=== PATIENT | female | born 1965 | race Two or more races ===

== ENCOUNTER 2020-01-09 09:09 | Emergency (ER) | payer MEDICAID ==
[~2020-01-09] VITALS: Ht 177.8 cm; Wt 58.5 kg
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
--- NOTE | 2020-01-09 09:15 | NUR ---
dr yoo at bedside for eval.
[2020-01-09] MEDS ORDERED: oxyCODONE/APAP (5/325 MG) 1 UDTAB TABLET ONE (09:24)
[2020-01-09] MEDS ORDERED: IBUPROFEN 600 MG TABLET PO ONE ×2 (09:24→09:30)
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
[2020-01-09] MEDS ORDERED: oxyCODONE/APAP (5/325 MG) 1 UDTAB TABLET PO ONE (09:30)
--- NOTE | 2020-01-09 10:12 | NUR ---
PD at bedside talking to patient.
--- NOTE | 2020-01-09 10:49 | NUR ---
patient provided crutches, still c/o mild pain with mobility. Patient discharged to home in stable condition. Written and verbal after care instructions given. Patient verbalizes understanding of instruction.
[2020-01-09 10:50] VITALS: BP 145/85
== END 2020-01-09 10:50 | disposition home or self-care (01) ==
LOC: ER 09:12
DX: M79.652 Pain in left thigh (principal); V03.99XA Pedestrian with other conveyance injured in collision with car, pick-up truck or van, unspecified whether traffic or nontraffic accident, initial encounter; Y93.01 Activity, walking, marching and hiking; Y92.89 Other specified places as the place of occurrence of the external cause; Y99.8 Other external cause status
CPT/HCPCS: 73700-TC

== ENCOUNTER 2020-01-12 15:26 | Emergency (ER) | payer MEDICAID ==
[~2020-01-12] VITALS: Ht 162.6 cm; Wt 60.3 kg
[2020-01-12 15:40] VITALS: BP 122/76
[2020-01-12] MEDS ORDERED: oxyCODONE/APAP (5/325 MG) 1 UDTAB TABLET ONE (16:00)
[2020-01-12] MEDS ORDERED: oxyCODONE/APAP (5/325 MG) 1 UDTAB TABLET PO ONE (16:00)
== END 2020-01-12 16:05 | disposition home or self-care (01) ==
LOC: ER 15:30
DX: S70.12XA Contusion of left thigh, initial encounter (principal); Z76.0 Encounter for issue of repeat prescription; V09.9XXA Pedestrian injured in unspecified transport accident, initial encounter; Y93.01 Activity, walking, marching and hiking; Y92.89 Other specified places as the place of occurrence of the external cause; Y99.8 Other external cause status

== ENCOUNTER 2024-12-31 11:34 | Emergency (ER) | payer MEDICAID ==
[~2024-12-31] VITALS: Ht 162.6 cm; Wt 53.1 kg
[2024-12-31 11:41] VITALS: BP 133/79; TEMP 98.5; O2SAT 98
== END 2024-12-31 12:26 | disposition left against medical advice (07) ==
LOC: ER 11:59
DX: H92.01 Otalgia, right ear (principal); Z53.21 Procedure and treatment not carried out due to patient leaving prior to being seen by health care provider

== ENCOUNTER 2025-01-04 17:55 | Emergency (ER) | payer MEDICAID ==
[~2025-01-04] VITALS: Ht 162.6 cm; Wt 53.1 kg
[2025-01-04 18:22] VITALS: BP 139/92; TEMP 97.9
[2025-01-04] MEDS ORDERED: AMOX-430 PO (19:55)
[2025-01-04] MEDS ORDERED: CIPR7.5D9 RIGHT EAR (19:55)
[2025-01-04 20:00] VITALS: O2SAT 99
== END 2025-01-04 21:00 | disposition home or self-care (01) ==
LOC: ER 17:59
DX: H66.91 Otitis media, unspecified, right ear (principal)